=== PATIENT | male | born 1950 | race Caucasian/White ===

== ENCOUNTER 2017-01-31 00:08 | Emergency (ER) | payer MEDICARE ==
[~2017-01-31] VITALS: Ht 188 cm; Wt 176.6 kg
[2017-01-31] MEDS ORDERED: OXYcodone/APAP 5/325MG TABLET PO ONE (01:30)
[2017-01-31] MEDS ORDERED: OXYcodone/APAP 5/325MG TABLET ONE (01:32)
[2017-01-31 01:36] VITALS: BP 186/79
[2017-01-31 01:42] LABS: HEMATOCRIT 34.1 % (39.2-51.8); HEMOGLOBIN 11.4 g/dL (13.7-18.0); WHITE BLOOD COUNT 8.9 x10^3/uL (3.4-10)
[2017-01-31] MEDS ORDERED: LIDOCAINE 1%, 20ML ONE (01:46)
[2017-01-31 01:51] LABS: ASPARTATE AMINO TRANSFERASE 32 U/L (15-37); BLOOD UREA NITROGEN 24 mg/dL (7-18)
== END 2017-01-31 02:30 | disposition home or self-care (01) ==
LOC: ED 01:06
DX: L03.113 Cellulitis of right upper limb (principal); L02.411 Cutaneous abscess of right axilla; M79.601 Pain in right arm; E11.51 Type 2 diabetes mellitus with diabetic peripheral angiopathy without gangrene; I10 Essential (primary) hypertension; I48.91 Unspecified atrial fibrillation
CPT/HCPCS: 10060; 36415; 80053; 85025